=== PATIENT | female | born 1935 | race Caucasian/White ===

== ENCOUNTER → 2017-05-22 | Outpatient (CLI) | payer MEDICARE ==
[~2017-05-22] MED LIST: DILT30 PO; LABE100T PO; LISI30TA4 PO; LORA-705 PO; METF500T6 PO; SIMV20TA6 PO; SITA50TA PO
== END | disposition home or self-care (01) ==
LOC: RAH 09:35
PROVIDERS: ATTEND Family Medicine
DX: Z12.31 Encounter for screening mammogram for malignant neoplasm of breast (principal)
CPT/HCPCS: 77067

== ENCOUNTER 2017-08-11 18:08 | Emergency (ER) | payer MEDICARE ==
[~2017-08-11 18:08] MED LIST changes: -LABE100T PO; +LABE100T5 PO
[2017-08-11 18:45] LABS: BASOPHILS % (AUTO) 0.8 % (0.0-5.0); EOSINOPHILS % (AUTO) 4.3 % (0.0-8.0); HEMATOCRIT 36.7 % (36-48); LYMPHOCYTES % (AUTO) 18.8 % (21.0-51.0); MEAN CORPUSCULAR HEMOGLOBIN 32.2 pg (27.0-33.0); MEAN CORPUSCULAR HGB CONC 34.4 g/dL (32.0-36.0); MEAN CORPUSCULAR VOLUME 93.6 fL (79-99); MONOCYTES % (AUTO) 4.5 % (3.0-13.0); NEUTROPHILS % (AUTO) 71.6 % (40.0-77.0); PLATELET COUNT (AUTO) 313 K/uL (130-400); RED BLOOD CELL COUNT(AUTO) 3.92 MIL/uL (4.00-5.50); RED CELL DISTRIBUTION WIDTH 12.7 % (11.0-15.5); WHITE BLOOD COUNT (AUTO) 9.5 K/uL (4.8-10.8)
[2017-08-11] MEDS ORDERED: PROMETHAZINE HCL 25 MG/ML 1ML AMPULE IM ONE (18:54)
[2017-08-11] MEDS ORDERED: SODIUM CHLORIDE 0.9% 500ML 500 ML IV ONE (18:55)
[2017-08-11 18:59] LABS: CREATININE 1.4 mg/dL (0.5-1.5); POTASSIUM 4.3 mmol/L (3.5-5.1)
[2017-08-11 19:03] LABS: ALBUMIN 4.1 g/dL (3.5-5.0); BILIRUBIN,TOTAL 0.4 mg/dL (0.2-1.0); TOTAL PROTEIN, SERUM 6.7 g/dL (6.0-8.3)
[2017-08-11] MEDS ORDERED: DiphenhydrAMINE HCL 50 MG/ML VIAL ONE (19:59)
== END 2017-08-11 23:03 | disposition home or self-care (01) ==
LOC: EDH 18:08
DX: R42 Dizziness and giddiness (principal); R11.2 Nausea with vomiting, unspecified; I10 Essential (primary) hypertension; E78.5 Hyperlipidemia, unspecified; E11.9 Type 2 diabetes mellitus without complications; Z79.899 Other long term (current) drug therapy; Z86.73 Personal history of transient ischemic attack (TIA), and cerebral infarction without residual deficits; Z98.890 Other specified postprocedural states
CPT/HCPCS: 36415; 70450; 80053; 83690; 84484; 85025; 93005; 96374; 96375; 99285; J1200; J2550; J7040

== ENCOUNTER → 2018-10-09 | Outpatient (CLI) | payer MEDICARE ==
[~2018-10-09] MED LIST changes: +METF-444 PO; -METF500T6 PO
== END | disposition home or self-care (01) ==
LOC: SHCH 09:34
PROVIDERS: ATTEND Internal Medicine Cardiovascular Disease
DX: I07.1 Rheumatic tricuspid insufficiency (principal); I10 Essential (primary) hypertension
CPT/HCPCS: 93306

== ENCOUNTER 2018-10-19 00:13 | Inpatient (IN) | payer MEDICARE ==
[~2018-10-19] VITALS: Ht 167.6 cm; Wt 53.1 kg
[2018-10-19 00:38] LABS: BASOPHILS % (AUTO) 0.2 % (0.0-5.0); HEMATOCRIT 36.3 % (36-48); LYMPHOCYTES % (AUTO) 2.4 % (21.0-51.0); MEAN CORPUSCULAR HEMOGLOBIN 30.7 pg (27.0-33.0); MEAN CORPUSCULAR HGB CONC 33.4 g/dL (32.0-36.0); MEAN CORPUSCULAR VOLUME 91.8 fL (79-99); MONOCYTES % (AUTO) 3.1 % (3.0-13.0); NEUTROPHILS % (AUTO) 94.3 % (40.0-77.0); PLATELET COUNT (AUTO) 268 K/uL (130-400); RED BLOOD CELL COUNT(AUTO) 3.96 MIL/uL (4.00-5.50); RED CELL DISTRIBUTION WIDTH 12.6 % (11.0-15.5); WHITE BLOOD COUNT (AUTO) 22.1 K/uL (4.8-10.8)
[2018-10-19 00:49] LABS: CREATININE 2.6 mg/dL (0.5-1.5); POTASSIUM 4.2 mmol/L (3.5-5.1)
[2018-10-19 00:54] LABS: ALBUMIN 3.4 g/dL (3.5-5.0); BILIRUBIN,TOTAL 0.6 mg/dL (0.2-1.0); TOTAL PROTEIN, SERUM 5.6 g/dL (6.0-8.3)
[2018-10-19] MEDS ORDERED: SODIUM CHLORIDE 0.9% 1000ML 1,000 ML IV ONE ×2 (00:54→02:54)
[2018-10-19] MEDS ORDERED: ONDANSETRON HCL 4 MG/2 ML VIAL ONE (00:54)
[2018-10-19 01:54] LABS: APPEARANCE,URINE Cloudy (CLEAR); BILIRUBIN,URINE Negative (NEGATIVE); COLOR,URINE Dark Yellow (YELLOW); GLUCOSE, URINE (UA) Negative (NEGATIVE); KETONES,URINE 15 mg/dL (NEGATIVE); LEUKOCYTE ESTERASE ,URINE Moderate (NEGATIVE); NITRATE,URINE Negative (NEGATIVE); OCCULT BLOOD,URINE Negative (NEGATIVE); PROTEIN,URINE POS 1+ mg/dL (NEGATIVE)
[2018-10-19] MEDS ORDERED: CEFTRIAXONE SODIUM 2 GM VIAL ONE (02:12)
[2018-10-19 02:16] LABS: BACTERIA,URINE Few /HPF (None Seen); RBC,URINE None Seen /HPF (0-1); SQUAMOUS EPITHELIAL CELL,UR Rare /HPF (0-2)
[2018-10-19 02:18] LABS: AMORPHOUS SEDIMENT,UR Few /LPF (None Seen)
[2018-10-19] MEDS: SODIUM CHLORIDE 0.9% 1000ML 1,000 ML IV SCH ×2 (02:44→12:44)
[2018-10-19] MEDS ORDERED: ONDANSETRON HCL 4 MG/2 ML VIAL IV PRN (02:45)
[2018-10-19] MEDS ORDERED: ACETAMINOPHEN 325 MG TAB PO PRN (02:45)
[2018-10-19] MEDS ORDERED: ACETAMINOPHEN 325 MG TAB ONE ×3 (02:54→08:08)
[2018-10-19] MEDS ORDERED: FAMOTIDINE/PF 20 MG/2 ML VIAL IV ONE (08:08)
[2018-10-19] MEDS ORDERED: ENOXAPARIN SODIUM 30 MG/0.3 ML SQ ONE (08:08)
[2018-10-19] MEDS: FAMOTIDINE/PF 20 MG/2 ML VIAL IV SCH (09:00)
[2018-10-19] MEDS: ENOXAPARIN SODIUM 30 MG/0.3 ML SQ SCH ×2 (09:00→20:30)
[2018-10-19] MEDS ORDERED: SIMV20TA6 PO (09:20)
[2018-10-19] MEDS ORDERED: METF-805 PO (09:20)
[2018-10-19] MEDS ORDERED: LORA10TA7 PO (09:20)
[2018-10-19] MEDS ORDERED: LISI-613 PO (09:20)
[2018-10-19] MEDS ORDERED: NITR0.4T50 SL (09:20)
[2018-10-19] MEDS ORDERED: HYDR12.530 PO (09:20)
[2018-10-19] MEDS ORDERED: LABE100T5 PO (09:20)
[2018-10-19] MEDS ORDERED: CLONIDINE PO (09:20)
[2018-10-19 16:30] VITALS: BP 92/51
[2018-10-19] MEDS: INSULIN HUMULIN R 100 UNIT/ML 3ML SQ SCH ×2 (16:30→20:27)
[2018-10-19] MEDS ORDERED: GLUCAGON 1MG KIT 1 MG ML IM PRN (16:30)
[2018-10-19 20:00] VITALS: BP 97/52
[2018-10-20] VITALS: BP 115/72
[2018-10-20] MEDS: ACETAMINOPHEN 325 MG TAB PO PRN ×3 (00:07→22:44)
[2018-10-20] MEDS ORDERED: CEFTRIAXONE SODIUM 1 GM IV SCH ×2 (02:00→21:00)
[2018-10-20] MEDS: SODIUM CHLORIDE 0.9% 1000ML 1,000 ML IV SCH ×3 (02:10→16:15)
[2018-10-20 04:00] VITALS: BP 116/60
[2018-10-20] MEDS ORDERED: LACTOBACILLUS RHAMNOSUS GG 1 EACH CAP.SPRINK PO SCH (06:00)
[2018-10-20] MEDS ORDERED: LOPERAMIDE HCL 2 MG CAP PO PRN (06:00)
[2018-10-20] MEDS: INSULIN HUMULIN R 100 UNIT/ML 3ML SQ SCH ×4 (06:09→21:00)
[2018-10-20 08:00] VITALS: BP 103/63
[2018-10-20] MEDS: ENOXAPARIN SODIUM 30 MG/0.3 ML SQ SCH (09:20)
[2018-10-20] MEDS: FAMOTIDINE/PF 20 MG/2 ML VIAL IV SCH (09:20)
[2018-10-20] MEDS ORDERED: NITROGLYCERIN 0.4 MG SL TAB SL PRN (11:15)
[2018-10-20 12:00] VITALS: BP 146/79
[2018-10-20] MEDS: LACTOBACILLUS RHAMNOSUS GG 1 EACH CAP.SPRINK PO SCH ×2 (12:07→16:15)
[2018-10-20 12:32] LABS: HEMATOCRIT 35.2 % (36-48); MEAN CORPUSCULAR HEMOGLOBIN 31.1 pg (27.0-33.0); MEAN CORPUSCULAR HGB CONC 33.3 g/dL (32.0-36.0); MEAN CORPUSCULAR VOLUME 93.4 fL (79-99); PLATELET COUNT (AUTO) 165 K/uL (130-400); RED BLOOD CELL COUNT(AUTO) 3.76 MIL/uL (4.00-5.50); RED CELL DISTRIBUTION WIDTH 13.2 % (11.0-15.5); WHITE BLOOD COUNT (AUTO) 22.7 K/uL (4.8-10.8)
[2018-10-20] MEDS: MEROPENEM 1 GM VIAL IVP SCH (13:20)
[2018-10-20 15:22] LABS: POTASSIUM 3.8 mmol/L (3.5-5.1)
[2018-10-20 16:00] VITALS: BP 164/87
[2018-10-20] MEDS: DEXTROSE 50%-WATER 50 ML DISP.SYRIN IV PRN ×2 (17:18→17:30)
[2018-10-20 20:18] VITALS: BP 158/85
[2018-10-20] MEDS: SIMVASTATIN 20 MG TABLET PO SCH (21:48)
[2018-10-20] MEDS ORDERED: PROMETHAZINE HCL 25 MG/ML 1ML AMPULE IVPB SCH (22:30)
[2018-10-20] MEDS ORDERED: HYDRALAZINE HCL 20 MG/ML VIAL ONE (22:31)
[2018-10-20] MEDS ORDERED: MORPHINE SULFATE 2 MG/ML 1ML SYG IVP PRN (23:15)
[2018-10-20] MEDS ORDERED: MORPHINE SULFATE 4 MG/1ML SYG IM PRN (23:15)
[2018-10-20] MEDS ORDERED: MORPHINE SULFATE 4 MG/1ML SYG ONE (23:19)
[2018-10-21] VITALS (28 sets, daily range): BP systolic 131–188; BP diastolic 57–107
[2018-10-21] MEDS: MEROPENEM 1 GM VIAL IVP SCH ×3 (00:13→23:52)
[2018-10-21] MEDS: SODIUM CHLORIDE 0.9% 1000ML 1,000 ML IV SCH ×4 (00:43→18:22)
[2018-10-21 05:46] LABS: BASOPHILS % (AUTO) 0.2 % (0.0-5.0); HEMATOCRIT 31.4 % (36-48); MEAN CORPUSCULAR HEMOGLOBIN 30.9 pg (27.0-33.0); MEAN CORPUSCULAR HGB CONC 33.3 g/dL (32.0-36.0); MEAN CORPUSCULAR VOLUME 92.9 fL (79-99); MONOCYTES % (AUTO) 3.5 % (3.0-13.0); NEUTROPHILS % (AUTO) 90.3 % (40.0-77.0); PLATELET COUNT (AUTO) 128 K/uL (130-400); RED BLOOD CELL COUNT(AUTO) 3.38 MIL/uL (4.00-5.50); RED CELL DISTRIBUTION WIDTH 12.9 % (11.0-15.5); WHITE BLOOD COUNT (AUTO) 20.6 K/uL (4.8-10.8)
[2018-10-21 05:51] LABS: CREATININE 2.3 mg/dL (0.5-1.5); POTASSIUM 3.6 mmol/L (3.5-5.1)
[2018-10-21] MEDS: INSULIN HUMULIN R 100 UNIT/ML 3ML SQ SCH ×4 (06:27→21:00)
[2018-10-21] MEDS: LACTOBACILLUS RHAMNOSUS GG 1 EACH CAP.SPRINK PO SCH ×4 (08:00→16:51)
[2018-10-21] MEDS: LORATADINE 10 MG TABLET PO SCH ×2 (08:46→09:00)
[2018-10-21] MEDS: FAMOTIDINE/PF 20 MG/2 ML VIAL IV SCH (08:46)
[2018-10-21] MEDS: ENOXAPARIN SODIUM 30 MG/0.3 ML SQ SCH ×2 (08:47→09:00)
[2018-10-21 14:33] LABS: INR 0.93 (0.85-1.15); PARTIAL THROMBOPLASTIN TIME 30.6 SEC (26.3-35.5); PROTHROMBIN TIME 9.8 SEC (9.6-11.6)
[2018-10-21] MEDS ORDERED: SUCCINYLCHOLINE 200MG/10ML SYR ONE (16:23)
[2018-10-21] MEDS ORDERED: FENTANYL CITRATE PF 50 MCG/1 ML 2ML VIAL ONE (16:24)
[2018-10-21] MEDS ORDERED: DEXAMETHASONE SOD PHOSPHATE 10MG/ML 1ML VIAL ONE (16:24)
[2018-10-21] MEDS ORDERED: LIDOCAINE PF 2% 5ML ABBOJECT ONE (16:24)
[2018-10-21] MEDS ORDERED: PROPOFOL 10 MG/ML 20ML VIAL IV ONE (16:24)
[2018-10-21] MEDS ORDERED: ONDANSETRON HCL 4 MG/2 ML VIAL ONE (16:24)
[2018-10-21] MEDS ORDERED: SCOPOLAMINE HYDROBROMIDE 1 EACH ADH..PATCH TD ONE (16:26)
[2018-10-21] MEDS ORDERED: DiphenhydrAMINE HCL 50 MG/ML VIAL ONE (16:26)
[2018-10-21] MEDS ORDERED: IOHEXOL-350 50ML VIAL IV ONE (16:40)
[2018-10-21] MEDS ORDERED: KETAMINE 50MG/ML SYRINGE 50 MG/ML DISP.SYRIN IV ONE (17:04)
[2018-10-21] MEDS: HYDRALAZINE HCL 20 MG/ML VIAL IV PRN (18:14)
[2018-10-21] MEDS ORDERED: LABETALOL 20 MG/4 ML DISP.SYRIN IV ONE (18:22)
[2018-10-21] MEDS ORDERED: MEPERIDINE-PF 25 MG/ML SYG ONE (18:46)
[2018-10-21] MEDS: SIMVASTATIN 20 MG TABLET PO SCH (20:58)
[2018-10-22] VITALS (9 sets, daily range): BP systolic 128–180; BP diastolic 74–113
[2018-10-22] MEDS: SODIUM CHLORIDE 0.9% 1000ML 1,000 ML IV SCH (02:30)
[2018-10-22 05:08] LABS: BASOPHILS % (AUTO) 0.4 % (0.0-5.0); EOSINOPHILS % (AUTO) 0.2 % (0.0-8.0); HEMATOCRIT 34.6 % (36-48); LYMPHOCYTES % (AUTO) 5.7 % (21.0-51.0); MEAN CORPUSCULAR HEMOGLOBIN 30.8 pg (27.0-33.0); MEAN CORPUSCULAR HGB CONC 32.8 g/dL (32.0-36.0); MONOCYTES % (AUTO) 2.4 % (3.0-13.0); NEUTROPHILS % (AUTO) 91.3 % (40.0-77.0); PLATELET COUNT (AUTO) 130 K/uL (130-400); RED BLOOD CELL COUNT(AUTO) 3.68 MIL/uL (4.00-5.50); RED CELL DISTRIBUTION WIDTH 13.7 % (11.0-15.5); WHITE BLOOD COUNT (AUTO) 10.9 K/uL (4.8-10.8)
[2018-10-22 05:15] LABS: CREATININE 1.6 mg/dL (0.5-1.5); POTASSIUM 4.7 mmol/L (3.5-5.1)
[2018-10-22] MEDS: INSULIN HUMULIN R 100 UNIT/ML 3ML SQ SCH ×4 (05:52→20:28)
[2018-10-22] MEDS ORDERED: CLONIDINE HCL 0.1 MG TABLET PO PRN (08:30)
[2018-10-22] MEDS: LABETALOL HCL 100 MG TABLET PO SCH ×2 (09:08→20:40)
[2018-10-22] MEDS: LACTOBACILLUS RHAMNOSUS GG 1 EACH CAP.SPRINK PO SCH ×3 (09:08→16:04)
[2018-10-22] MEDS: LORATADINE 10 MG TABLET PO SCH (09:09)
[2018-10-22] MEDS: LISINOPRIL 20 MG TABLET PO SCH (09:09)
[2018-10-22] MEDS: FAMOTIDINE/PF 20 MG/2 ML VIAL IV SCH (09:09)
[2018-10-22] MEDS: DILTIAZEM HCL 60 MG TABLET PO SCH ×3 (09:10→20:42)
[2018-10-22] MEDS: ENOXAPARIN SODIUM 30 MG/0.3 ML SQ SCH (09:15)
[2018-10-22] MEDS: MEROPENEM 1 GM VIAL IVP SCH (12:27)
[2018-10-22] MEDS: CEFTRIAXONE SODIUM 1 GM IVP SCH (16:04)
[2018-10-22] MEDS: SIMVASTATIN 20 MG TABLET PO SCH (20:39)
[2018-10-23] VITALS (7 sets, daily range): BP systolic 126–185; BP diastolic 65–109
[2018-10-23 05:36] LABS: HEMATOCRIT 29.6 % (36-48); MEAN CORPUSCULAR HEMOGLOBIN 31.2 pg (27.0-33.0); MEAN CORPUSCULAR HGB CONC 33.9 g/dL (32.0-36.0); MEAN CORPUSCULAR VOLUME 92.1 fL (79-99); NUCLEATED RED BLOOD CELLS 0.1 % (0.0-0.19); PLATELET COUNT (AUTO) 126 K/uL (130-400); RED BLOOD CELL COUNT(AUTO) 3.22 MIL/uL (4.00-5.50); RED CELL DISTRIBUTION WIDTH 13.3 % (11.0-15.5); WHITE BLOOD COUNT (AUTO) 8.2 K/uL (4.8-10.8)
[2018-10-23] MEDS: INSULIN HUMULIN R 100 UNIT/ML 3ML SQ SCH ×3 (06:00→16:30)
[2018-10-23 06:07] LABS: CREATININE 1.4 mg/dL (0.5-1.5); POTASSIUM 3.4 mmol/L (3.5-5.1)
[2018-10-23] MEDS: LACTOBACILLUS RHAMNOSUS GG 1 EACH CAP.SPRINK PO SCH ×2 (10:44→12:00)
[2018-10-23] MEDS: FAMOTIDINE/PF 20 MG/2 ML VIAL IV SCH (10:44)
[2018-10-23] MEDS: LORATADINE 10 MG TABLET PO SCH (10:45)
[2018-10-23] MEDS: LISINOPRIL 20 MG TABLET PO SCH (10:45)
[2018-10-23] MEDS: DILTIAZEM HCL 60 MG TABLET PO SCH ×2 (10:45→14:02)
[2018-10-23] MEDS ORDERED: POTASSIUM CHLORIDE 20 MEQ ERTAB PO SCH (10:45)
[2018-10-23] MEDS: LABETALOL HCL 100 MG TABLET PO SCH (10:46)
[2018-10-23] MEDS: ENOXAPARIN SODIUM 30 MG/0.3 ML SQ SCH (10:52)
[2018-10-23 13:20] LABS: INR 0.94 (0.85-1.15); PROTHROMBIN TIME 9.9 SEC (9.6-11.6)
[2018-10-23] MEDS: CEFTRIAXONE SODIUM 1 GM IVP SCH (14:02)
[2018-10-23] MEDS ORDERED: HYDROCODONE/ACETAMINOPHEN 5/325 MG TAB PO PRN (14:45)
[2018-10-23] MEDS: HYDRALAZINE HCL 20 MG/ML VIAL IV PRN (18:55)
== END 2018-10-23 20:50 | DRG 853 ==
LOC: EDH 00:13 → EDHIP 02:30 → 4CH 17:04
PROVIDERS: ADMIT Internal Medicine; ATTEND Internal Medicine
PROC: BT1F1ZZ Fluoroscopy of Left Kidney, Ureter and Bladder using Low Osmolar Contrast (ICD-10-PCS; principal; 2018-10-21 17:06)
PROC: 0T778DZ Dilation of Left Ureter with Intraluminal Device, Via Natural or Artificial Opening Endoscopic (ICD-10-PCS; 2018-10-21 17:06)
DX: A41.50 Gram-negative sepsis, unspecified (principal); G93.41 Metabolic encephalopathy; N13.6 Pyonephrosis; N17.9 Acute kidney failure, unspecified; K57.32 Diverticulitis of large intestine without perforation or abscess without bleeding; R64 Cachexia; Z68.1 Body mass index [BMI] 19.9 or less, adult; I95.9 Hypotension, unspecified; N18.9 Chronic kidney disease, unspecified; B96.20 Unspecified Escherichia coli [E. coli] as the cause of diseases classified elsewhere; E11.22 Type 2 diabetes mellitus with diabetic chronic kidney disease; E78.5 Hyperlipidemia, unspecified; E87.6 Hypokalemia; I12.9 Hypertensive chronic kidney disease with stage 1 through stage 4 chronic kidney disease, or unspecified chronic kidney disease; K44.9 Diaphragmatic hernia without obstruction or gangrene; N20.0 Calculus of kidney; Z86.73 Personal history of transient ischemic attack (TIA), and cerebral infarction without residual deficits; Z82.3 Family history of stroke; Z82.49 Family history of ischemic heart disease and other diseases of the circulatory system; Z83.3 Family history of diabetes mellitus; Z96.643 Presence of artificial hip joint, bilateral
CPT/HCPCS: 36415; 70450; 74176; 74420; 80048; 80053; 81001; 82948; 83605; 84484; 85025; 85027; 85610; 85730; 87040; 87077; 87186; 87324; 87493; 93005; 97039; 99291; A4344; C1758; C1769; G0378; J0330; J0360; J0696; J1100; J1200; J1650; J2001; J2175; J2185; J2270; J2405; J2704; J3010; J3490; J7030; J7070; J7120; Q9967

== ENCOUNTER 2018-11-07 19:55 | Inpatient (IN) | payer MEDICARE ==
[~2018-11-07] VITALS: Ht 167.6 cm; Wt 51.7 kg
[~2018-11-07 19:55] MED LIST changes: +CLONIDINE PO; +HYDR12.530 PO; +LISI-613 PO; -LISI30TA4 PO; -LORA-705 PO; +LORA10TA7 PO; -METF-444 PO; +METF-805 PO; +NITR0.4T50 SL; -SITA50TA PO
[2018-11-07 20:45] LABS: BASOPHILS % (AUTO) 1.6 % (0.0-5.0); EOSINOPHILS % (AUTO) 6.1 % (0.0-8.0); MEAN CORPUSCULAR HEMOGLOBIN 30.7 pg (27.0-33.0); MEAN CORPUSCULAR HGB CONC 32.9 g/dL (32.0-36.0); MEAN CORPUSCULAR VOLUME 93.2 fL (79-99); MONOCYTES % (AUTO) 8.8 % (3.0-13.0); NEUTROPHILS % (AUTO) 42.5 % (40.0-77.0); NUCLEATED RED BLOOD CELLS 0.1 % (0.0-0.19); PLATELET COUNT (AUTO) 403 K/uL (130-400); RED BLOOD CELL COUNT(AUTO) 3.65 MIL/uL (4.00-5.50); RED CELL DISTRIBUTION WIDTH 13.1 % (11.0-15.5); WHITE BLOOD COUNT (AUTO) 5.4 K/uL (4.8-10.8)
[2018-11-07 20:59] LABS: CREATININE 1.2 mg/dL (0.5-1.5); POTASSIUM 4.1 mmol/L (3.5-5.1)
[2018-11-07 21:01] LABS: ALBUMIN 3.4 g/dL (3.5-5.0); BILIRUBIN,TOTAL 0.4 mg/dL (0.2-1.0); TOTAL PROTEIN, SERUM 5.8 g/dL (6.0-8.3)
[2018-11-07 21:13] LABS: B-TYPE NATRIURETIC PEPTIDE 73 pg/mL (0-100)
[2018-11-07] MEDS ORDERED: CLONIDINE HCL 0.1 MG TABLET ONE ×2 (21:17→21:50)
[2018-11-07] MEDS ORDERED: HYDRALAZINE HCL 25 MG TABLET ONE (23:08)
[2018-11-07 23:09] LABS: APPEARANCE,URINE Clear (CLEAR); BILIRUBIN,URINE Negative (NEGATIVE); COLOR,URINE Yellow (YELLOW); GLUCOSE, URINE (UA) Negative (NEGATIVE); KETONES,URINE Trace mg/dL (NEGATIVE); LEUKOCYTE ESTERASE ,URINE Moderate (NEGATIVE); NITRATE,URINE Negative (NEGATIVE); OCCULT BLOOD,URINE Moderate (NEGATIVE); PH,URINE 6.5 (5.0-8.0); PROTEIN,URINE POS 2+ mg/dL (NEGATIVE); UROBILINOGEN,URINE 0.2 mg/dL (0.2-1.0)
[2018-11-07] MEDS ORDERED: SODIUM CHLORIDE 0.9% 500ML 500 ML IV ONE (23:17)
[2018-11-07 23:23] LABS: BACTERIA,URINE Rare /HPF (None Seen); SQUAMOUS EPITHELIAL CELL,UR Rare /HPF (0-2)
[2018-11-07] MEDS: SODIUM CHLORIDE 0.9% 1000ML 1,000 ML IV SCH (23:49)
[2018-11-08] MEDS ORDERED: MORPHINE SULFATE 2 MG/ML 1ML SYG IV PRN
[2018-11-08] MEDS ORDERED: HYDRALAZINE HCL 20 MG/ML VIAL IV PRN
[2018-11-08] MEDS ORDERED: ACETAMINOPHEN 325 MG TAB PO PRN
[2018-11-08] MEDS ORDERED: ONDANSETRON HCL 4 MG/2 ML VIAL IV PRN
[2018-11-08] MEDS ORDERED: CEFTRIAXONE SODIUM 1 GM ONE (00:37)
[2018-11-08] MEDS ORDERED: SODIUM CHLORIDE 0.9% 1000ML 1,000 ML IV ONE (00:38)
[2018-11-08 03:06] VITALS: BP 152/89
[2018-11-08] MEDS ORDERED: GLUC1I IM (03:42)
[2018-11-08] MEDS ORDERED: ACET-2900 PO (03:42)
[2018-11-08] MEDS ORDERED: ENOX30DI4 SQ (03:42)
[2018-11-08] MEDS ORDERED: FAMO20TA8 PO (03:42)
[2018-11-08 06:53] LABS: BASOPHILS % (AUTO) 0.9 % (0.0-5.0); EOSINOPHILS % (AUTO) 2.9 % (0.0-8.0); HEMATOCRIT 33.8 % (36-48); LYMPHOCYTES % (AUTO) 19.3 % (21.0-51.0); MEAN CORPUSCULAR HEMOGLOBIN 30.7 pg (27.0-33.0); MEAN CORPUSCULAR HGB CONC 33.2 g/dL (32.0-36.0); MEAN CORPUSCULAR VOLUME 92.3 fL (79-99); MONOCYTES % (AUTO) 6.4 % (3.0-13.0); NEUTROPHILS % (AUTO) 70.5 % (40.0-77.0); PLATELET COUNT (AUTO) 394 K/uL (130-400); RED BLOOD CELL COUNT(AUTO) 3.66 MIL/uL (4.00-5.50); RED CELL DISTRIBUTION WIDTH 13.3 % (11.0-15.5); WHITE BLOOD COUNT (AUTO) 6.9 K/uL (4.8-10.8)
[2018-11-08 07:00] VITALS: BP 183/84
[2018-11-08 07:16] LABS: CREATININE 0.8 mg/dL (0.5-1.5); POTASSIUM 3.9 mmol/L (3.5-5.1)
[2018-11-08 07:27] LABS: BILIRUBIN,TOTAL 0.4 mg/dL (0.2-1.0); MAGNESIUM 1.7 mg/dL (1.80-2.40); THYROID STIMULATING HORMONE 0.92 uIU/mL (0.36-3.74); TOTAL PROTEIN, SERUM 5.7 g/dL (6.0-8.3)
[2018-11-08] MEDS ORDERED: NITROGLYCERIN 0.4 MG SL TAB SL PRN (07:30)
[2018-11-08] MEDS ORDERED: ACETAMINOPHEN EXTENDED RELEASE 650 MG TABLET PO PRN (07:30)
[2018-11-08] MEDS ORDERED: INSULIN HUMULIN R 100 UNIT/ML 3ML SQ SCH (07:30)
[2018-11-08] MEDS ORDERED: MAGNESIUM 2GM PREMIX 50ML 50 ML IV PRN (07:45)
[2018-11-08 08:26] LABS: HEMOGLOBIN A1C 6.6 % (4.0-6.0)
[2018-11-08] MEDS: FAMOTIDINE/PF 20 MG/2 ML VIAL IV SCH ×2 (08:28→20:44)
[2018-11-08] MEDS: LISINOPRIL 20 MG TABLET PO SCH (08:29)
[2018-11-08] MEDS: LORATADINE 10 MG TABLET PO SCH (08:31)
[2018-11-08] MEDS ORDERED: LABETALOL HCL 100 MG TABLET PO SCH (09:00)
[2018-11-08] MEDS ORDERED: DILTIAZEM HCL 60 MG TABLET PO SCH (09:00)
--- NOTE | 2018-11-08 09:30 | NUR ---
COGNITIVE-LINGUISTIC EVALUATION COMPLETED. Pt PRESENTS WITH SEVERE EXPRESSIVE APHASIA. EVALUATION: Pt ABLE TO FOLLOW SIMPLE 1-2 STEP COMMANDS. Pt CAN ANSWER YES/NO QUESTIONS, IDENTIFY ITEMS FROM A FIELD OF 3 AND IDENTIFY BODY PARTS. Pt WITH OBVIOUS APHASIA WITH DIFFICULTY STATING NAMING (OBVIOUS FRUSTRATION OBSERVED), VERBALIZING VIA REPETITION. Pt ABLE TO SAY YES AND NO CONSISTENTLY. Pt'S INTELLIGIBILITY IS IMPAIRED, HOWEVER, WILL NOT BE TARGETED AT THIS TIME. SKILLED SPEECH THERAPY IS RECOMMENDED TARGETING EXPRESSIVE LANGUAGE SECONDARY TO APHASIA. RECOMMENDATIONS: 1. SKILLED SPEECH THERAPY IS RECOMMENDED TARGETING EXPRESSIVE LANGUAGE DEFICITS 3-5XWK. LTG#1: Pt WILL INCREASE EXPRESSIVE LANGUAGE SKILLS TO EXPRESS WANTS AND NEEDS INDEPENDENTLY. STG#1: Pt WILL COMPLETE CONFRONTATIONAL NAMING TASK WITH 80% ACCURACY. STG#2: Pt WILL ANSWER SIMPLE WH QUESTIONS IN 1-2 WORD UTTERANCES WITH 80% ACCURACY. STG#3: Pt WILL IMITATE BI-SYLLABIC WORDS WITH 80% ACCURACY. STG#4: Pt WILL INDEPENDENTLY STATE IDENTIFYING INFORMATION WITH 100% ACCURACY. STG#5: Pt WILL PRODUCE SPEECH IN STRUCTURED TASKS WHEN PROVIDED WITH PHONEMIC CUE WITH 80% ACCURACY. Addendum: 11/08/18 at 1234 by DEVORA MELENDEZ [facility] Amended: Links added.
--- NOTE | 2018-11-08 09:40 | NUR ---
DYSPHAGIA EVAL COMPLETED. Pt COMPLAINS OF ODYNOPHAGIA WITH SOLIDS. RECOMMEND MBSS; DIET RECOMMENDATIONS: PUREED, THIN LIQUIDS; PILLS WHOLE WITH LIQUIDS. *GOALS TO BE ESTABLISHED AFTER MBSS Addendum: 11/08/18 at 1240 by DEVORA MELENDEZ, [facility] Amended: Links added.
[2018-11-08] MEDS: LABETALOL HCL 100 MG TABLET PO SCH ×2 (10:26→20:45)
[2018-11-08 11:00] VITALS: BP 121/62
--- NOTE | 2018-11-08 11:48 | NUR ---
DCP: POSSIBLE TRANSFER TO [facility] met with pt and Eric [phone]. Couple are residents at [facility] for 2 yrs and states pt was independent, used walker r/t hx of CVA in 2009. No in home care services. Plan is for possible transfer [facility] stroke unit. Arrangements being worked on.
[2018-11-08] MEDS: SODIUM CHLORIDE 0.9% 1000ML 1,000 ML IV SCH ×2 (12:01→20:45)
[2018-11-08] MEDS: ENOXAPARIN SODIUM 30 MG/0.3 ML SQ SCH (12:12)
[2018-11-08] MEDS ORDERED: IOHEXOL-350 75 ML VIAL IV ONE (12:27)
--- NOTE | 2018-11-08 15:04 | NUR ---
CT RESULTS SENT TO DR. MONTIEL AND DR. THAO MADE AWARE RESULTS WERE IN. MD REVIEWED RESULTS. TRANSFER TO [facility] TO BE DISCONTINUED PER DR. THAO. DR. THAO ALSO AGREED WITH ASA [address] THAO SPOKE WITH PT'S SPOUSE REGARDING RESULTS.
[2018-11-08 16:00] VITALS: BP 176/92
[2018-11-08 16:30] VITALS: BP 152/87
[2018-11-08] MEDS: ASPIRIN 325MG EC TAB 325 MG TABLET.DR PO SCH (19:26)
[2018-11-08 20:19] VITALS: BP 169/84
[2018-11-08] MEDS: SIMVASTATIN 20 MG TABLET PO SCH (20:44)
[2018-11-08] MEDS: CEFTRIAXONE SODIUM 1 GM IV SCH ×2 (23:27)
[2018-11-09] VITALS (7 sets, daily range): BP systolic 144–188; BP diastolic 73–108
[2018-11-09] MEDS: LABETALOL HCL 5 MG/ML 20ML VIAL IV PRN (05:29)
[2018-11-09] MEDS: SODIUM CHLORIDE 0.9% 1000ML 1,000 ML IV SCH ×2 (05:35→17:43)
--- NOTE | 2018-11-09 08:01 | NUR ---
Dr. Broussard here and ordered to remove hydrochlorothiazide as allergy because pt 's said she is not allergic to hydrochlorothiazide.I also informed him of pt's diastolic BP 10
--- NOTE | 2018-11-09 08:03 | NUR ---
Diastolic BP 108mmHg.No new order received.
--- NOTE | 2018-11-09 08:46 | NUR ---
Dr. Sanchez here and saw the pt. today, updated with pt. condition and imaging results and V/S ,no new order received.
[2018-11-09] MEDS: LORATADINE 10 MG TABLET PO SCH (10:44)
[2018-11-09] MEDS: ENOXAPARIN SODIUM 30 MG/0.3 ML SQ SCH (10:44)
[2018-11-09] MEDS: ASPIRIN 325MG EC TAB 325 MG TABLET.DR PO SCH (10:44)
[2018-11-09] MEDS: AMLODIPINE BESYLATE 5 MG TAB PO SCH (10:44)
[2018-11-09] MEDS: LABETALOL HCL 100 MG TABLET PO SCH ×3 (10:44→21:12)
[2018-11-09] MEDS: FAMOTIDINE/PF 20 MG/2 ML VIAL IV SCH ×2 (10:44→21:11)
[2018-11-09] MEDS: LISINOPRIL 20 MG TABLET PO SCH (10:45)
--- NOTE | 2018-11-09 11:35 | NUR ---
DYSPHAGIA RE-EVAL COMPLETED. -S/S OF ASPIRATION AND NO COMPLAINS OF ODYNOPHAGIA AT THIS TIME. RECOMMEND REGULAR, THIN LIQUIDS; PILLS WHOLE WITH LIQUIDS. Addendum: 11/09/18 at 1139 by DEVORA MELENDEZ, [facility] Amended: Links added.
--- NOTE | 2018-11-09 11:42 | NUR ---
SPEECH THERAPY COMPLETED. S: Pt SEEN IN BED WITH AT BEDSIDE. Pt COOPERATIVE WITH ALL TASKS AND HIGHLY MOTIVATED AT THIS TIME. Pt WITH IMPROVED SPEECH PRODUCTION DURING TODAY'S SESSION. O: Pt CURRENTLY TARGETING EXPRESSIVE LANGUAGE GOALS. RESULTS ARE FOLLOWS: STG#1: Pt WILL COMPLETE CONFRONTATIONAL NAMING TASK WITH 80% ACCURACY: 80% ACCURACY WITH MIN CUES STG#2: Pt WILL ANSWER SIMPLE WH QUESTIONS IN 1-2 WORD UTTERANCES WITH 80% ACCURACY: 80% ACCURACY GIVEN PHONEMIC CUES STG#3: Pt WILL IMITATE BI-SYLLABIC WORDS WITH 80% ACCURACY: 80% ACCURACY INDEPENDENTLY STG#4: Pt WILL INDEPENDENTLY STATE IDENTIFYING INFORMATION WITH 100% ACCURACY:70% ACCURACY WITH MIN CUES STG#5: Pt WILL PRODUCE SPEECH IN STRUCTURED TASKS WHEN PROVIDED WITH PHONEMIC CUE WITH 80% ACCURACY: 80% ACCURACY. A: Pt WITH IMPROVED SPONTANEOUS SPEECH. Pt SPEAKING IN 2-3 WORD UTTERANCES CONSISTENTLY DURING THE SESSION. Pt RESPONDING WELL TO THERAPEUTIC INTERVENTION AT THIS TIME. P: RECOMMEND CONTINUED SKILLED SPEECH THERAPY TARGETING EXPRESSIVE LANGUAGE TOLERATED BY Pt. BENDING SHED WORKER COORDINATED CARE WITH NURSE GRECO. Addendum: 11/09/18 at 1147 by DEVORA MELENDEZ [facility] Amended: Links added.
[2018-11-09 13:03] LABS: INR 0.96 (0.85-1.15); PROTHROMBIN TIME 10.1 SEC (9.6-11.6)
[2018-11-09] MEDS: MEROPENEM 1 GM VIAL IVP SCH (14:42)
--- NOTE | 2018-11-09 14:58 | NUR ---
PICC CONSENT Obtianed consent for PICC line insertion from , who is also medical power of ip technology transactions attorney, since patient is resting and requests for to sign papers. She is also having some difficulty regaining speech fluidity after her symptoms upon arrival to hospital and prefers to rest at this time and for her to sign. Filed signed consent in chart.
--- NOTE | 2018-11-09 17:00 | NUR ---
UROLOGY CONSULT Dr. Mccall's office notified of consult by flat spring assembler Chata. Pending for Dr. Mccall to come see patient.
[2018-11-09] MEDS: SIMVASTATIN 20 MG TABLET PO SCH (21:11)
[2018-11-10] MEDS: CEFTRIAXONE SODIUM 1 GM IV SCH (00:04)
[2018-11-10] MEDS: LABETALOL HCL 5 MG/ML 20ML VIAL IV PRN (00:25)
[2018-11-10] MEDS: MEROPENEM 1 GM VIAL IVP SCH ×2 (00:32→14:43)
[2018-11-10 03:00] VITALS: BP 154/71
[2018-11-10 07:32] VITALS: BP 189/107
[2018-11-10] MEDS: AMLODIPINE BESYLATE 5 MG TAB PO SCH (08:00)
[2018-11-10] MEDS: FAMOTIDINE/PF 20 MG/2 ML VIAL IV SCH (08:00)
[2018-11-10] MEDS: LABETALOL HCL 100 MG TABLET PO SCH (08:00)
[2018-11-10] MEDS: LORATADINE 10 MG TABLET PO SCH (08:00)
[2018-11-10] MEDS: ASPIRIN 325MG EC TAB 325 MG TABLET.DR PO SCH (08:00)
--- NOTE | 2018-11-10 08:00 | NUR ---
ASSESSMENT ENCOUNTERED PT IN SEMI BARRETT'S POSITION, A&OX3, HARD OF HEARING, CALM COOPERATIVE AND DOES NOT APPEAR TO BE IN ANY DISTRESS NOR ANY NEURO DEFICITS PRESENT. PT DENIES PAIN, SOB, NAUSEA. PICC LINE TO LEFT UPPER ARM WITH PORTS PATENT. PT IS AMBULATORY, GAIT SLOW BUT STEADY WITH GAIT BELT, WALKER AND ASSIST. CALL LIGHT WITHIN REACH, FAMILY AT BEDSIDE.
[2018-11-10] MEDS: LISINOPRIL 20 MG TABLET PO SCH (08:01)
[2018-11-10] MEDS: ENOXAPARIN SODIUM 30 MG/0.3 ML SQ SCH (08:01)
[2018-11-10] MEDS ORDERED: LISINOPRIL 20 MG TABLET ONE (10:02)
[2018-11-10 11:12] VITALS: BP 144/75
[2018-11-10 15:45] VITALS: BP 150/84
--- NOTE | 2018-11-10 18:30 | NUR ---
DISCHARGE TO [facility], REPORT CALLED TO CHINA HESS PT TRANSPORTED VIA [facility]SPORT[facility] PERSONNEL
[2018-11-11] MEDS ORDERED: LISINOPRIL 40 MG TABLET PO SCH (09:00)
== END 2018-11-10 18:47 | DRG 689 ==
LOC: EDH 19:55 → EDHIP 23:49 → 2CH 11-08 02:58 → 2DH 11-08 19:47
PROVIDERS: ADMIT Internal Medicine; ATTEND Internal Medicine
PROC: 02HV33Z Insertion of Infusion Device into Superior Vena Cava, Percutaneous Approach (ICD-10-PCS; principal; 2018-11-09)
DX: N13.6 Pyonephrosis (principal); G93.41 Metabolic encephalopathy; E44.1 Mild protein-calorie malnutrition; I16.1 Hypertensive emergency; I69.351 Hemiplegia and hemiparesis following cerebral infarction affecting right dominant side; Z68.1 Body mass index [BMI] 19.9 or less, adult; G45.9 Transient cerebral ischemic attack, unspecified; E86.0 Dehydration; I12.9 Hypertensive chronic kidney disease with stage 1 through stage 4 chronic kidney disease, or unspecified chronic kidney disease; N18.3 Chronic kidney disease, stage 3 (moderate); E11.22 Type 2 diabetes mellitus with diabetic chronic kidney disease; E78.5 Hyperlipidemia, unspecified; E83.42 Hypomagnesemia; I69.320 Aphasia following cerebral infarction; R13.10 Dysphagia, unspecified; Z16.24 Resistance to multiple antibiotics; Z96.643 Presence of artificial hip joint, bilateral; B96.1 Klebsiella pneumoniae [K. pneumoniae] as the cause of diseases classified elsewhere; B96.20 Unspecified Escherichia coli [E. coli] as the cause of diseases classified elsewhere; I34.0 Nonrheumatic mitral (valve) insufficiency; Z79.899 Other long term (current) drug therapy; Z82.3 Family history of stroke; Z82.49 Family history of ischemic heart disease and other diseases of the circulatory system; Z83.3 Family history of diabetes mellitus; Z88.8 Allergy status to other drugs, medicaments and biological substances
CPT/HCPCS: 36415; 70450; 70496; 71045; 80053; 81001; 82140; 82550; 82948; 83036; 83735; 83880; 84100; 84443; 84484; 85025; 85610; 87040; 87077; 87088; 87186; 92507; 92522; 92610; 93005; 93306; 93880; 97039; 99291; C1894; G0378; J0360; J0696; J1650; J2185; J3490; J7030; J7040; Q9967

== ENCOUNTER → 2018-12-12 | Outpatient (CLI) | payer MEDICARE ==
[~2018-12-12] MED LIST changes: +ACET-2900 PO; -CLONIDINE PO; +ENOX30DI4 SQ; +FAMO20TA8 PO; +GLUC1I IM; -HYDR12.530 PO
== END | disposition home or self-care (01) ==
LOC: RAH 14:54
PROVIDERS: ATTEND Urology
DX: N20.1 Calculus of ureter (principal); Z96.643 Presence of artificial hip joint, bilateral
CPT/HCPCS: 74018

== ENCOUNTER 2019-01-03 12:34 | Inpatient (IN) | payer MEDICARE ==
[~2019-01-03] VITALS: Ht 157.5 cm; Wt 51.7 kg
[~2019-01-03 12:34] MED LIST changes: -ACET-2900 PO; +ACET-3194 PO; +SIMV-43 PO; -SIMV20TA6 PO
[2019-01-03 13:01] LABS: BASOPHILS % (AUTO) 0.8 % (0.0-5.0); EOSINOPHILS % (AUTO) 4.7 % (0.0-8.0); LYMPHOCYTES % (AUTO) 30.1 % (21.0-51.0); MEAN CORPUSCULAR HEMOGLOBIN 31.1 pg (27.0-33.0); MEAN CORPUSCULAR HGB CONC 33.4 g/dL (32.0-36.0); MEAN CORPUSCULAR VOLUME 93.1 fL (79-99); MONOCYTES % (AUTO) 4.6 % (3.0-13.0); NEUTROPHILS % (AUTO) 59.8 % (40.0-77.0); NUCLEATED RED BLOOD CELLS 0.1 % (0.0-0.19); PLATELET COUNT (AUTO) 286 K/uL (130-400); RED BLOOD CELL COUNT(AUTO) 3.65 MIL/uL (4.00-5.50); RED CELL DISTRIBUTION WIDTH 13.6 % (11.0-15.5); WHITE BLOOD COUNT (AUTO) 6.1 K/uL (4.8-10.8)
[2019-01-03 13:10] LABS: CREATININE 1.3 mg/dL (0.5-1.5); POTASSIUM 4.4 mmol/L (3.5-5.1)
[2019-01-03 13:14] LABS: ALBUMIN 3.6 g/dL (3.5-5.0); BILIRUBIN,DIRECT 0.1 mg/dL (0.0-0.3); BILIRUBIN,TOTAL 0.5 mg/dL (0.2-1.0)
[2019-01-03 13:21] LABS: B-TYPE NATRIURETIC PEPTIDE 51 pg/mL (0-100)
[2019-01-03] MEDS ORDERED: SODIUM CHLORIDE 0.9% 500ML 500 ML IV ONE ×2 (13:54→16:03)
[2019-01-03 14:10] LABS: APPEARANCE,URINE Cloudy (CLEAR); BILIRUBIN,URINE Negative (NEGATIVE); COLOR,URINE Yellow (YELLOW); GLUCOSE, URINE (UA) Negative (NEGATIVE); KETONES,URINE Trace mg/dL (NEGATIVE); LEUKOCYTE ESTERASE ,URINE Moderate (NEGATIVE); NITRATE,URINE Negative (NEGATIVE); OCCULT BLOOD,URINE Moderate (NEGATIVE); PROTEIN,URINE POS 2+ mg/dL (NEGATIVE)
[2019-01-03 14:23] LABS: BACTERIA,URINE Moderate /HPF (None Seen)
[2019-01-03] MEDS ORDERED: CEFTRIAXONE SODIUM 1 GM IVP SCH (16:00)
[2019-01-03] MEDS ORDERED: LACTULOSE 20 GM/30 ML UDCUP PO PRN (16:15)
[2019-01-03] MEDS ORDERED: ONDANSETRON HCL 4 MG/2 ML VIAL IV PRN (16:15)
[2019-01-03] MEDS ORDERED: HYDROCODONE/ACETAMINOPHEN 5/325 MG TAB PO PRN (16:15)
[2019-01-03] MEDS ORDERED: ACETAMINOPHEN 325 MG TAB PO PRN (16:15)
[2019-01-03] MEDS: INSULIN HUMULIN R 100 UNIT/ML 3ML SQ SCH ×2 (16:30→21:00)
[2019-01-03] MEDS ORDERED: CEFTRIAXONE SODIUM 1 GM ONE (17:24)
[2019-01-03 19:45] VITALS: BP 154/78
[2019-01-03] MEDS ORDERED: FAMOTIDINE/PF 20 MG/2 ML VIAL IV SCH (21:00)
[2019-01-03] MEDS: SIMVASTATIN 20 MG TABLET PO SCH (21:00)
[2019-01-03] MEDS: LABETALOL HCL 100 MG TABLET PO SCH (21:00)
[2019-01-03 23:08] VITALS: BP 161/80
[2019-01-04 03:50] VITALS: BP 128/84
[2019-01-04 04:13] LABS: HEMATOCRIT 34.6 % (36-48); RED BLOOD CELL COUNT(AUTO) 3.74 MIL/uL (4.00-5.50)
[2019-01-04 04:16] LABS: CREATININE 1.2 mg/dL (0.5-1.5); POTASSIUM 3.9 mmol/L (3.5-5.1)
[2019-01-04 04:22] LABS: MEAN CORPUSCULAR HEMOGLOBIN 31.3 pg (27.0-33.0); MEAN CORPUSCULAR HGB CONC 33.9 g/dL (32.0-36.0); MEAN CORPUSCULAR VOLUME 92.3 fL (79-99); PLATELET COUNT (AUTO) 293 K/uL (130-400); RED CELL DISTRIBUTION WIDTH 13.5 % (11.0-15.5); WHITE BLOOD COUNT (AUTO) 5.9 K/uL (4.8-10.8)
[2019-01-04] MEDS: INSULIN HUMULIN R 100 UNIT/ML 3ML SQ SCH ×4 (05:46→21:00)
[2019-01-04 08:00] VITALS: BP 169/96
[2019-01-04] MEDS ORDERED: LISINOPRIL 20 MG TABLET PO SCH (09:00)
--- NOTE | 2019-01-04 09:45 | NUR ---
HARD OF HEARING Addendum: 01/04/19 at 2132 by RAMAN BIRMINGHAM RN RN Amended: Links added.
[2019-01-04] MEDS: FAMOTIDINE/PF 20 MG/2 ML VIAL IV SCH (10:02)
[2019-01-04] MEDS: LORATADINE 10 MG TABLET PO SCH (10:04)
[2019-01-04] MEDS: LABETALOL HCL 100 MG TABLET PO SCH (10:04)
[2019-01-04] MEDS: ENOXAPARIN SODIUM 30 MG/0.3 ML SQ SCH (10:06)
[2019-01-04 11:00] VITALS: BP 144/69
[2019-01-04] MEDS ORDERED: HYDRALAZINE HCL 20 MG/ML VIAL IV PRN (12:30)
--- NOTE | 2019-01-04 12:48 | NUR ---
JUSTINAP CM met w/pt, currently asleep at this time, obtained info through med records. Called spouse Eric Lyn, as per spouse. Pt is a residence at [facility], pt will return once same facility once stable. Telephone consent ESTEBAN signed. DC plan back to [facility] once reaccepted. CM to cont to follow up. Addendum: 01/04/19 at 1309 by MADAY FREEMAN LVN CM Amended: Links added.
[2019-01-04] MEDS: AMLODIPINE BESYLATE 5 MG TAB PO SCH (12:59)
[2019-01-04 16:00] VITALS: BP_SYST 140; BP_SYST 150; BP_SYST 159; BP_DIAS 75; BP_DIAS 76; BP_DIAS 80
[2019-01-04] MEDS ORDERED: SODIUM CHLORIDE 0.9% 1000ML 1,000 ML IV SCH (17:00)
--- NOTE | 2019-01-04 17:35 | NUR ---
DR MARISCAL IN TO SEE PATIENT , PATIENT TO FOLLOW-UP WITH HIM IN 2-3 WEEKS AFTER DISCHARGED Addendum: 01/04/19 at 2121 by RAMAN BIRMINGHAM RN RN NOTED ENTERED ON WRONG PATIENT
[2019-01-04 19:30] VITALS: BP 164/75
[2019-01-04] MEDS: LABETALOL HCL 200 MG TABLET PO SCH (21:53)
[2019-01-04] MEDS: SIMVASTATIN 20 MG TABLET PO SCH (21:53)
[2019-01-04 23:00] VITALS: BP 137/71
[2019-01-05 03:30] VITALS: BP 148/81
[2019-01-05 03:55] LABS: BASOPHILS % (AUTO) 0.9 % (0.0-5.0); EOSINOPHILS % (AUTO) 5.2 % (0.0-8.0); HEMATOCRIT 33.5 % (36-48); LYMPHOCYTES % (AUTO) 32.9 % (21.0-51.0); MEAN CORPUSCULAR HEMOGLOBIN 31.8 pg (27.0-33.0); MEAN CORPUSCULAR HGB CONC 34.4 g/dL (32.0-36.0); MEAN CORPUSCULAR VOLUME 92.6 fL (79-99); MONOCYTES % (AUTO) 6.4 % (3.0-13.0); NEUTROPHILS % (AUTO) 54.6 % (40.0-77.0); NUCLEATED RED BLOOD CELLS 0.1 % (0.0-0.19); PLATELET COUNT (AUTO) 279 K/uL (130-400); RED BLOOD CELL COUNT(AUTO) 3.62 MIL/uL (4.00-5.50); RED CELL DISTRIBUTION WIDTH 13.6 % (11.0-15.5); WHITE BLOOD COUNT (AUTO) 5.9 K/uL (4.8-10.8)
[2019-01-05 04:15] LABS: CREATININE 1.4 mg/dL (0.5-1.5); POTASSIUM 3.7 mmol/L (3.5-5.1)
[2019-01-05] MEDS: INSULIN HUMULIN R 100 UNIT/ML 3ML SQ SCH ×3 (06:51→16:30)
[2019-01-05 08:00] VITALS: BP 151/82
[2019-01-05] MEDS ORDERED: LISINOPRIL 40 MG TABLET PO SCH (09:00)
[2019-01-05] MEDS: FAMOTIDINE/PF 20 MG/2 ML VIAL IV SCH (10:39)
[2019-01-05] MEDS: AMLODIPINE BESYLATE 5 MG TAB PO SCH (10:39)
[2019-01-05] MEDS: LABETALOL HCL 200 MG TABLET PO SCH (10:40)
[2019-01-05] MEDS: LORATADINE 10 MG TABLET PO SCH (10:40)
[2019-01-05] MEDS: ENOXAPARIN SODIUM 30 MG/0.3 ML SQ SCH (10:40)
[2019-01-05 11:00] VITALS: BP_SYST 117; BP_SYST 177; BP_DIAS 74; BP_DIAS 88
[2019-01-05 16:00] VITALS: BP 152/95
[2019-01-05] MEDS ORDERED: LABE200T5 PO (17:38)
[2019-01-05] MEDS ORDERED: AMLO5TAB4 PO (17:38)
[2019-01-05] MEDS ORDERED: LISI40TA4 PO (17:38)
--- NOTE | 2019-01-05 18:30 | NUR ---
NOTE DISCHARGE INSTRUCTIONS GIVEN TO PATIENT AT THIS TIME. VERBALIZED UNDERSTANDING. WHEN WE WENT OVER THE CHANGES IN BP MEDS SHE SHOWED ME THE HOME MEDS AND SHE WAS ALREADY TAKING THE DOSES THAT DR THAO HAD INCREASED HER HOME MEDS TO. SO I INSTRUCTED HER TO CONTINUE WITH THOSE AND TO SE HER PRIMARY M.D. IN 3-[address] KING.
== END 2019-01-05 18:57 | disposition home or self-care (01) | DRG 690 ==
LOC: EDH 12:34 → EDHIP 16:01 → 4CH 19:09 → 4BH 01-05 08:33
PROVIDERS: ADMIT Internal Medicine; ATTEND Internal Medicine
DX: N39.0 Urinary tract infection, site not specified (principal); E11.65 Type 2 diabetes mellitus with hyperglycemia; E78.5 Hyperlipidemia, unspecified; I10 Essential (primary) hypertension; I25.10 Atherosclerotic heart disease of native coronary artery without angina pectoris; Z82.3 Family history of stroke; Z82.49 Family history of ischemic heart disease and other diseases of the circulatory system; Z83.3 Family history of diabetes mellitus; Z86.73 Personal history of transient ischemic attack (TIA), and cerebral infarction without residual deficits; Z88.8 Allergy status to other drugs, medicaments and biological substances
CPT/HCPCS: 36415; 70450; 71045; 72125; 74018; 80048; 80076; 81001; 82550; 82948; 83605; 83690; 83880; 84484; 85025; 85027; 87088; 87804; 93005; G0378; J0696; J1650; J3490; J7030; J7040